=== PATIENT | female | born 1970 | race Two or more races ===

== ENCOUNTER 2019-05-04 14:31 | Inpatient (IN) | payer OTHER ==
[~2019-05-04] VITALS: Ht 162.6 cm; Wt 68.0 kg
[2019-05-10] MEDS ORDERED: SYNTHROID75 MCG PO (09:53)
[2019-05-10] MEDS ORDERED: VITAMIN D35000 UNI1 PO (10:04)
[2019-05-10] MEDS ORDERED: ZANTAC300 MG PO (10:04)
[2019-05-10] MEDS ORDERED: FORTAMET500 MG PO (10:22)
== END 2019-05-19 08:59 | disposition home or self-care (01) | DRG 743 ==
LOC: OB/GYN 05-16 07:45 → O/R 05-16 07:45 → SURG 05-16 08:15 → OB/GYN 05-16 08:15
PROVIDERS: ADMIT Specialist
PROC: 0UT70ZZ Resection of Bilateral Fallopian Tubes, Open Approach (ICD-10-PCS; 2019-05-16)
PROC: 0USG0ZZ Reposition Vagina, Open Approach (ICD-10-PCS; 2019-05-16)
PROC: 0US20ZZ Reposition Bilateral Ovaries, Open Approach (ICD-10-PCS; 2019-05-16)
PROC: 0UT90ZZ Resection of Uterus, Open Approach (ICD-10-PCS; principal; 2019-05-16 10:30)
DX: D25.1 Intramural leiomyoma of uterus (principal); N72 Inflammatory disease of cervix uteri; N80.0 Endometriosis of uterus

== ENCOUNTER 2019-06-01 13:41 | Outpatient (CLI) | payer OTHER ==
[~2019-06-01 13:41] MED LIST: FORTAMET500 MG PO; SYNTHROID75 MCG PO; VITAMIN D35000 UNI1 PO; ZANTAC300 MG PO
== END 2019-06-01 13:49 | disposition home or self-care (01) ==
LOC: LAB 13:41
DX: N20.0 Calculus of kidney (principal)

== ENCOUNTER 2019-06-02 07:36 | Outpatient (CLI) | payer OTHER | END 2019-06-02 07:42 | disposition home or self-care (01) | LOC: TOM 07:36 | DX: R10.32 Left lower quadrant pain (principal); R10.12 Left upper quadrant pain ==

== ENCOUNTER 2020-06-05 13:57 | Outpatient (CLI) | payer OTHER | END 2020-06-05 13:58 | disposition home or self-care (01) | LOC: SONOGRAMA 13:57 | PROVIDERS: ATTEND Internal Medicine Endocrinology, Diabetes & Metabolism | DX: E04.1 Nontoxic single thyroid nodule (principal) ==

== ENCOUNTER 2021-09-18 20:07 | Emergency (ER) | payer OTHER ==
[~2021-09-18] VITALS: Ht 152.4 cm; Wt 68.0 kg
[2021-09-18] MEDS ORDERED: ZITHROMAX500 MG PO (22:39)
[2021-09-18] MEDS ORDERED: DOLOGEN CAPLET1 EACH PO (22:39)
== END 2021-09-18 22:45 | disposition home or self-care (01) ==
LOC: ER 20:07
DX: B34.9 Viral infection, unspecified (principal)

== ENCOUNTER 2022-01-24 13:35 | Outpatient (CLI) | payer OTHER ==
[~2022-01-24 13:35] MED LIST changes: +DOLOGEN CAPLET1 EACH PO; +ZITHROMAX500 MG PO
== END 2022-01-24 13:47 | disposition home or self-care (01) ==
LOC: SONOGRAMA 13:35
PROVIDERS: ATTEND Internal Medicine Endocrinology, Diabetes & Metabolism
DX: E04.1 Nontoxic single thyroid nodule (principal)

== ENCOUNTER 2022-12-15 11:44 | Outpatient (CLI) | payer OTHER | END 2022-12-15 11:58 | disposition home or self-care (01) | LOC: SONOGRAMA 11:44 | PROVIDERS: ATTEND Internal Medicine Endocrinology, Diabetes & Metabolism | DX: E04.1 Nontoxic single thyroid nodule (principal) ==

== ENCOUNTER 2023-06-04 10:52 | Outpatient (CLI) | payer OTHER | END 2023-06-04 10:59 | disposition home or self-care (01) | LOC: RAD 10:52 | DX: M25.50 Pain in unspecified joint (principal) ==

== ENCOUNTER → 2024-03-23 13:25 | Outpatient (CLI) | payer OTHER | END | disposition home or self-care (01) | LOC: NUCLEAR 13:15 | DX: M81.0 Age-related osteoporosis without current pathological fracture (principal); M85.80 Other specified disorders of bone density and structure, unspecified site ==

== ENCOUNTER 2024-05-25 10:16 | Outpatient (CLI) | payer OTHER | END 2024-05-25 10:28 | disposition home or self-care (01) | LOC: RAD 10:16 | PROVIDERS: ATTEND Physical Medicine & Rehabilitation | DX: M25.561 Pain in right knee (principal); M54.50 Low back pain, unspecified; M54.2 Cervicalgia ==

== ENCOUNTER 2024-07-07 10:57 | Outpatient (CLI) | payer OTHER | END 2024-07-07 11:04 | disposition home or self-care (01) | LOC: SONOGRAMA 10:57 | PROVIDERS: ATTEND Internal Medicine Endocrinology, Diabetes & Metabolism | DX: E04.1 Nontoxic single thyroid nodule (principal) ==

== ENCOUNTER 2024-08-25 11:37 | Outpatient (CLI) | payer OTHER | END 2024-08-25 11:50 | disposition home or self-care (01) | LOC: MRI 11:37 | PROVIDERS: ATTEND Physical Medicine & Rehabilitation | DX: M54.2 Cervicalgia (principal) | CPT/HCPCS: 72141 ==

== ENCOUNTER 2024-09-29 14:41 | Outpatient (CLI) | payer OTHER | END 2024-09-29 14:52 | disposition home or self-care (01) | LOC: MRI 14:41 | PROVIDERS: ATTEND Physical Medicine & Rehabilitation | DX: M25.561 Pain in right knee (principal); M23.51 Chronic instability of knee, right knee | CPT/HCPCS: 73721 ==

== ENCOUNTER 2025-01-25 10:29 | Outpatient (CLI) | payer OTHER | END 2025-01-25 10:32 | disposition home or self-care (01) | LOC: TOM 10:29 | DX: R10.11 Right upper quadrant pain (principal); N23 Unspecified renal colic ==

== ENCOUNTER 2025-03-23 10:05 | Outpatient (CLI) | payer OTHER | END 2025-03-23 10:08 | disposition home or self-care (01) | LOC: SONOGRAMA 10:05 | PROVIDERS: ATTEND Internal Medicine Endocrinology, Diabetes & Metabolism | DX: R74.01 Elevation of levels of liver transaminase levels (principal); K74.00 Hepatic fibrosis, unspecified ==